=== PATIENT | female | born 1950 | race Hispanic/Latino ===

== ENCOUNTER → 2019-04-22 | Day surgery (SDC) | payer MEDICARE ==
[2019-04-21 10:28] LABS: BASOPHILS % 0.5 % (0.0-1.0); EOSINOPHILS # (AUTO) 0.1 (0.0-0.4); HEMATOCRIT 44.3 % (34.2-44.1); HEMOGLOBIN 14.6 g/dL (12.0-16.0); LYMPHOCYTES # (AUTO) 2.4 (1.0-3.2); LYMPHOCYTES % 31.6 % (18.0-39.1); MEAN CORPUSCULAR HEMOGLOBIN 28.7 pg (28-32); MONOCYTES # (AUTO) 0.5 (0.2-0.8); MONOCYTES % 6.7 % (4.4-11.3); NEUTROPHILS # (AUTO) 4.6 (2.1-6.9); NEUTROPHILS % 59.9 % (38.7-80.0); PLATELET COUNT 215 x10e3/uL (140-360); RED BLOOD COUNT 5.09 x10e6/uL (3.6-5.1); RED CELL DISTRIBUTION WIDTH 12.6 % (11.7-14.4)
--- NOTE | 2019-04-21 10:58 | Diagnostic Imaging Report ---
EXAM: CHEST 2 VIEWS DATE: 04/21/2019 10:14 AM INDICATION: Preadmission evaluation COMPARISON: 10/25/2014 FINDINGS: The trachea is midline. The lungs are symmetrically expanded without evidence for large focal consolidation, pneumothorax, or significant pleural effusion. The cardiomediastinal silhouette and pulmonary vasculature are within normal limits. Atherosclerotic calcifications noted within the aortic arch. No acute osseous abnormality is identified. The surrounding soft tissues are unremarkable. IMPRESSION: No acute cardiopulmonary process identified. Signed by: Dr. Taiwo Villa MD on 04/21/2019 10:54 AM
[~2019-04-22] MED LIST: ALBUTEROL/IPRATROPIUM 3 ML NEB ONE; ATORVASTATIN CA10 MG PO; AUGMENTIN 500-1 EACH PO; BUPIVACAINE 0.25% 30ML SDV INJ ONE; CEFAZOLIN SOD 1 GM/NS 50ML 100 ML IV ONE; CLARITHROMYCIN500 MG PO; DEXAMETHASONE SOD PHOS INJ 4 MG/ML VIAL ONE; EPINEPHRINE 1 MG/ML 30ML VIAL ONE; FENTANYL CITRATE/PF 100MCG/2 ML INJ ONE; FLUTICASONE; GLYCOPYRROLATE INJ 0.2 MG/ML VIAL ONE; LIDOCAINE 2% /EPINEPHRINE 20 ML SDV INJ ONE; LIDOCAINE HCL 2% LOCAL INJ 5 ML SDV VIAL INJ ONE; MEPERIDINE HCL INJ 25 MG/ML VIAL ONE; MIDAZOLAM HCL 2 MG/2 ML VIAL ONE; NEOSTIGMINE 1 MG/ML 10ML VIAL ONE; OMEPRAZOLE40 MG PO; ONDANSETRON HCL INJ 2MG/ML 2ML 2 MG/ML VIAL ONE; PRAVASTATIN SOD20 MG PO; PRO AIR INH; PROPOFOL IV EMULSION 10 MG/ML 20 ML VIAL ONE; PROVENTIL HFA6.7 GM IH; SEVOFLURANE INHAL SOLN 250 ML PEN BTL ONE; SYNTHROID100 MCG PO
--- OUTSIDE RECORDS SUMMARY | 2019-04-22 05:20 | XMS REPORT ---
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 Allergies, Adverse Reactions, Alerts This patient has no known allergies or adverse reactions. Medications This patient has no known medications. Encounters Start Date/Time End Date/Time Encounter Type Admission Type Attending Clinicians Care Facility Care Department Encounter ID 2018-08-28 08:21:00 2018-08-28 08:21:00 [id number] Results Test Description Test Time Test Comments Text Results Atomic Results Result Comments CHEST 2 VIEWS 2019-04-21 10:53:00 [place] [address] Patient Name: SHELBI HYMAN MR #: [id number] : 1950 Age/Sex: 68/F Req #: [id number] Adm Physician: Ordered by: WILLIAM MENJIVAR MD Report #: [id number] Location: OR Room/Bed: Procedure: [id number] DX/CHEST 2 VIEWS Exam Date: 04/21/19 Exam Time: 1029 REPORT STATUS: Signed EXAM: CHEST 2 VIEWS DATE: 04/21/2019 10:14 AM IN DICATION: Preadmission evaluation COMPARISON: 10/25/2014 FINDINGS: The trachea is midline. The lungs are symmetrically expanded without evidence for large focal consolidation, pneumothorax, or significant pleural effusion. The cardiomediastinal silhouette and pulmonary vasculature are within normal limits. Atherosclerotic calcifications noted within the aortic arch. No acute osseous abnormality is identified. The surrounding soft tissues are unremarkable. IMPRESSION: No acute cardiopulmonary process identified. Signed by: Dr. Taiwo Garcia MD on 04/21/2019 10:54 AM Dictated By: TAIWO GARCIA MD [id number] Transcribed By: MILE on 04/21/19 1058 COPY TO: WILLIAM MENJIVAR MD
--- NOTE | 2019-04-22 07:15 | NUR ---
SPIRITUAL CARE - Pre-Surgery Assessment: Pt in bed. Pt's and daughter at bedside. Pt reported supportive attention from family and friends. Intervention: I provided pastoral presence, hospitality, and sympathetic listening. I acquainted pt with availability of rn otolaryngology while hospitalized. Outcome: Pt expressed appreciation for visit. No need for follow up indicated at this time. KARYN Medranolain Spiritual Care Department O: [phone] Pager: [phone] ([phone] number calling from)
[2019-04-22 12:15] VITALS: BP 124/61
--- NOTE | 2019-04-24 15:18 | Operative Report ---
DATE OF PROCEDURE: 04/22/2019 SURGEON: Kj Villatoro MD PREOPERATIVE DIAGNOSES: Left shoulder rotator cuff tear and left shoulder acromioclavicular joint arthritis. POSTOPERATIVE DIAGNOSES: Left shoulder rotator cuff tear, left shoulder synovitis, left shoulder partial labral tear, and left shoulder acromioclavicular joint arthritis. OPERATIONS AND PROCEDURES PERFORMED: The patient underwent a left shoulder examination under anesthesia, left shoulder arthroscopy, left shoulder arthroscopic debridement of synovitis, left shoulder arthroscopic debridement of a partial labral tear, a left shoulder arthroscopic rotator cuff reconstruction, a left shoulder arthroscopic subacromial decompression and acromioplasty, and a left shoulder arthroscopic distal clavicle resection. DIAMOND CLEANER: XAVIER Ram. ANESTHESIA: Regional block plus general anesthesia. IV FLUIDS: Per the anesthesia record. BRIEF DESCRIPTION OF THE PATIENT'S OPERATIVE PROCEDURE: Ms. Brandt was taken to the operating room and placed in the supine position on the operating table. Following induction of general anesthesia as well as endotracheal intubation, the patient's left upper extremity was examined under anesthesia. She was found to have a normal-appearing shoulder. She had full passive range of motion of the shoulder joint. There was no evidence of instability. The patient's shoulder and upper extremity were prepped and draped in the standard surgical fashion. Standard posterior lateral and anterior portals were created without difficulty. The scope was placed within the shoulder joint atraumatically. Examination of the glenohumeral articulation demonstrated no significant evidence of chondromalacia. The long head of the biceps was found to be contained within the shoulder. There were no loose bodies within the shoulder joint. Examination of the rotator cuff demonstrated a tear of the leading edge of the rotator cuff tissue with mild retraction. There was diffuse synovitis in the shoulder joint. A probe was placed within the shoulder and there was fraying and degeneration of the labrum. The shaver was placed in the shoulder joint and the synovitis was debrided. The labrum was also debrided at this time. The rotator cuff tear was debrided with a shaver. The shaver was then used to create a bleeding bony bed for the insertion of the rotator cuff. The shoulder was inflated with sterile normal saline. The scope was placed in the subacromial space and significant bursal inflammation was encountered. A lateral portal was created from an outside-in technique. A bursectomy was performed. The rotator cuff injury was easily identified. An anterior lateral portal was created. A shaver was again used to debride the insertion site to a bleeding bony bed. The rotator cuff was further debrided to healthy tissue. A single triple-loaded suture anchor was inserted into the greater tuberosity of the humerus. The suture arms from that anchor were then woven through the rotator cuff tissue and the rotator cuff was advanced and tied firmly into its normal insertion site. The coracoacromial ligament was then resected. An aggressive acromioplasty was performed at this time. The shoulder was placed through range of motion and the rotator cuff was found to not impinge on the undersurface of the acromion. Attention was then turned to the acromioclavicular joint. The anterior portal was transferred into the subacromial space at the level of the AC joint. The AC joint was isolated and the shaver was used to resect a 1 cm section of the distal clavicle. The scope was transferred to the anterior portal to confirm complete resection of the distal clavicle. The shoulder was inflated with a sterile normal saline. The portal sites were closed and sterile dressings were applied. The patient was also provided a shoulder immobilizer, awakened, and taken to the postanesthesia care unit in stable condition. Mariana Pierre acted as first calender worker for this case and was necessary for both prepping and draping the patient as well as the positioning of the arm during the procedure to allow this case to be successful. MD DIPTI Stone/RON /[id number]
== END | disposition home or self-care (01) ==
LOC: OR 05:16
PROVIDERS: ATTEND Specialist
DX: M75.102 Unspecified rotator cuff tear or rupture of left shoulder, not specified as traumatic (principal); M13.812 Other specified arthritis, left shoulder; M65.812 Other synovitis and tenosynovitis, left shoulder; J45.909 Unspecified asthma, uncomplicated; E03.9 Hypothyroidism, unspecified; E78.5 Hyperlipidemia, unspecified; K21.9 Gastro-esophageal reflux disease without esophagitis; X58.XXXA Exposure to other specified factors, initial encounter; Z01.810 Encounter for preprocedural cardiovascular examination; Z01.812 Encounter for preprocedural laboratory examination; Z01.818 Encounter for other preprocedural examination; Z85.819 Personal history of malignant neoplasm of unspecified site of lip, oral cavity, and pharynx
CPT/HCPCS: 29824; 29826; 29827; 36415; 71046; 85025; 93005; C1713; J0690; J1100; J2001 ×2; J2175; J2405; J2704; J2710; J2250; J3010

== ENCOUNTER 2019-07-30 10:37 | Outpatient (RCR) | payer MEDICARE ==
[~2019-07-30 10:37] MED LIST changes: -ALBUTEROL/IPRATROPIUM 3 ML NEB ONE; -BUPIVACAINE 0.25% 30ML SDV INJ ONE; -CEFAZOLIN SOD 1 GM/NS 50ML 100 ML IV ONE; -DEXAMETHASONE SOD PHOS INJ 4 MG/ML VIAL ONE; -EPINEPHRINE 1 MG/ML 30ML VIAL ONE; -FENTANYL CITRATE/PF 100MCG/2 ML INJ ONE; -GLYCOPYRROLATE INJ 0.2 MG/ML VIAL ONE; -LIDOCAINE 2% /EPINEPHRINE 20 ML SDV INJ ONE; -LIDOCAINE HCL 2% LOCAL INJ 5 ML SDV VIAL INJ ONE; -MEPERIDINE HCL INJ 25 MG/ML VIAL ONE; -MIDAZOLAM HCL 2 MG/2 ML VIAL ONE; -NEOSTIGMINE 1 MG/ML 10ML VIAL ONE; -ONDANSETRON HCL INJ 2MG/ML 2ML 2 MG/ML VIAL ONE; -PROPOFOL IV EMULSION 10 MG/ML 20 ML VIAL ONE; -SEVOFLURANE INHAL SOLN 250 ML PEN BTL ONE
== END 2019-08-18 ==
LOC: PT 10:37
PROVIDERS: ATTEND Specialist
DX: M75.102 Unspecified rotator cuff tear or rupture of left shoulder, not specified as traumatic (principal); M19.012 Primary osteoarthritis, left shoulder